=== PATIENT | male | born 1970 | race Caucasian/White ===

== ENCOUNTER → 2020-12-12 12:06 | Outpatient (CLI) | payer OTHER, MEDICAID, SELFPAY ==
--- NOTE | 2020-12-12 12:14 | DI.RAD.S_ITS ---
PROCEDURE: XR SHOULDER RT MIN 2V INDICATIONS: RT SHOULDER PAIN TECHNIQUE: 3 views of the shoulder were acquired. COMPARISON: None. FINDINGS: Bones: No fractures or dislocations. No suspicious bony lesions. Visualized ribs appear intact. Humeral head is high-riding. Soft tissues: No suspicious soft tissue calcifications. IMPRESSION: High riding appearance of the humeral head, which can be indicative of rotator cuff pathology. Dictated by: Joanne Ridley M.D. on 12/12/2020 at 17:24 Approved by: Joanne Ridley M.D. on 12/12/2020 at 17:24
== END ==
PROVIDERS: PCP Family Medicine; Referring Provider Family Medicine; Visit Provider Family Medicine
DX: M25.511 Pain in right shoulder (principal)
CPT/HCPCS: 73030